=== PATIENT | male | born 1960 | race Hispanic/Latino ===

== ENCOUNTER 2017-05-03 12:57 | Inpatient (IN) | payer SELFPAY ==
[2017-05-03 13:40] LABS: Basophils % (Auto) 0.6 % (0.0-1.8); Eosinophils % (Auto) 0.4 % (0.0-4.3); Hematocrit 51.2 % (35.5-45.6); Hemoglobin 17.2 gm/dl (11.8-15.2); Mean Corpuscular HGB Conc 34 % (32-34); Mean Corpuscular Hemoglobin 30 pg (28-32); Mean Corpuscular Volume 88 fl (84-94); Platelet Count 201 K/mm3 (140-440); Red Blood Count 5.83 M/mm3 (3.65-5.03); Red Cell Distribution Width 13.6 % (13.2-15.2); White Blood Count 9.2 K/mm3 (4.5-11.0)
[2017-05-03 13:56] LABS: Anion Gap 18 mmol/L; BUN/Creatinine Ratio 9; Blood Urea Nitrogen 9 mg/dL (9-20); Carbon Dioxide 25 mmol/L (22-30); Chloride 99.4 mmol/L (98-107); Glucose 114 mg/dL (75-100); Potassium 4.4 mmol/L (3.6-5.0); Sodium 138 mmol/L (137-145)
--- NOTE | 2017-05-03 14:06 | Emergency Department Report ---
Chief Complaint: Chest Pain Stated Complaint: CHEST PAIN Time Seen by Provider: 05/03/17 14:01 - HPI History of Present Illness: Patient is a 56-year-old male to history of hyperlipidemia who presents to ED complaining of meets left-sided chest pain times this morning. Patient was seen over at [facility] and was sent to the ED for further evaluation. Patient states pain localized mid to left chest area. He denies fevers/chills/nausea/vomiting/abdominal pain/dizziness or headache - ROS Review of Systems: As noted in HPI - Exam Vital Signs: Vital Signs 05/03/17 13:14 Temperature 97.4 F L Pulse Rate 106 H Respiratory 18 Rate Blood Pressure 129/84 O2 Sat by Pulse 97 Oximetry Physical Exam: GENERAL: Alert and oriented x3, no apparent distress, Normal Gait, atraumatic. LUNGS: Symetrical with respiration, No wheezing, no rales or crackles, CTAB. HEART: S1, S2 present, regular rate and rhythm without murmur, no rubs, no gallops. Non tender to palpation SKIN: Warm and dry, No lesions, No ulceration or induration present. MSE screening note: Focused history and physical exam performed. Due to findings the following was ordered: ED Medical Decision Making - Lab Data Result diagrams: 05/03/17 13:21 05/03/17 13:21 - Medical Decision Making [id number] male stable his in no distress Chest pain protocol ordered. Chest x-ray ordered. Patient to be seen by ED physician ED Disposition for MSE Condition: Stable
--- NOTE | 2017-05-03 14:54 | XRay Report ---
ROUTINE CHEST, TWO VIEWS: HISTORY: chest pain. The trachea, heart, mediastinal contour, lung oro and bony thorax are unremarkable. IMPRESSION: Unremarkable chest x-ray.
[2017-05-04] MEDS ORDERED: NACL 0.9% 1000 ML 1,000 ML IV ONE (06:25)
--- NOTE | 2017-05-04 06:28 | Emergency Department Report ---
ED Chest Pain HPI - General Chief Complaint: Chest Pain Stated Complaint: CHEST PAIN Time Seen by Provider: 05/03/17 14:01 Source: patient Mode of arrival: Ambulatory Limitations: No Limitations - History of Present Illness Initial Comments: 56 Y9O MALE WITH RETROSTERNAL CHEST PAIN RADIATING DOWN BOTH ARMS ASSOCIATED WITH DIZZINESS. PT BEGAN TO HAVE THESE SYMPTOMS MORE THAN A MONTH AGO AND WAS REFERRED TO THE [facility] DR JOON AREVALO FOR NUCLEAR STRESS TEST. THE PT WA GIVEN 3.84 MCL OF TL-201 CHLORIDE IV FOR EVALUATION OF MYOCARDIAL FUNCTION AND PERFUSION AT REST. THE RESULTS WERE ABNORMAL DEMONSTRATING A MEDIUM TO LARGE SIZE DEFECT OF MODERATE INTENSITY IN THE BASAL AND MID SEGMENTS OF THE INFERIOR WALL. THIS DEFECT IS REVERSIBLE. PT WAS SENT HER BY IS PCP TO HAVE CARDIAC CATH AND STENT IF POSSIBLE TO FIX THSI DEFECT. MD Complaint: chest pain -: Gradual, week(s) (1 ) Onset: during exertion Pain Location: substernal Pain Radiation: RUE, LUE Severity: moderate, severe Severity scale (0 -10): 8 Quality: tightness, other (BURNING) Consistency: intermittent Improves With: rest Worsens With: exertion re: dyspnea. denies: nausea, vomting Treatments Prior to Arrival: none - Related Data Allergies Allergy/AdvReac Type Severity Reaction Status Date / Time codeine Allergy Nausea Verified 05/03/17 13:14 Heart Score - HEART Score History: Highly suspicious EKG: Normal Age: 45-65 Risk factors: > 3 risk factors or hx of atherosclerotic disease Troponin: < normal limit HEART Score: 5 ED Review of Systems ROS: Stated complaint: CHEST PAIN Other details as noted in HPI Constitutional: denies: chills, fever Eyes: denies: eye pain, eye discharge, vision change ENT: denies: ear pain, throat pain Respiratory: denies: cough, shortness of breath, wheezing Cardiovascular: palpitations Endocrine: excessive sweating Gastrointestinal: denies: abdominal pain, nausea, diarrhea Genitourinary: denies: urgency, dysuria Musculoskeletal: denies: back pain, joint swelling, arthralgia Skin: denies: rash, lesions Neurological: weakness. denies: headache, paresthesias Psychiatric: denies: anxiety, depression Hematological/Lymphatic: denies: easy bleeding, easy bruising ED Past Medical Hx - Past Medical History Previous Medical History?: Yes Hx Hypertension: Yes Additional medical history: High cholesterol, CAD - Surgical History Past Surgical History?: No - Family History Family history: hypertension - Social History Smoking Status: Former Smoker Substance Use Type: Alcohol, Prescribed ED Physical Exam - General Limitations: No Limitations General appearance: alert, in no apparent distress - Head Head exam: Present: atraumatic, normocephalic - Eye Eye exam: Present: normal appearance, EOMI - ENT ENT exam: Present: mucous membranes moist - Neck Neck exam: Present: normal inspection, full ROM - Respiratory Respiratory exam: Present: normal lung sounds bilaterally. Absent: respiratory distress - Cardiovascular Cardiovascular Exam: Present: regular rate, normal rhythm. Absent: systolic murmur, diastolic murmur, rubs, gallop - GI/Abdominal GI/Abdominal exam: Present: soft, normal bowel sounds, other (LARGE CENTRIPITAL FAT) - Rectal Rectal exam: Present: deferred - Extremities Exam Extremities exam: Present: normal inspection, full ROM - Back Exam Back exam: Present: normal inspection, full ROM - Neurological Exam Neurological exam: Present: alert, oriented X3, CN II-XII intact - Psychiatric Psychiatric exam: Present: normal affect, normal mood - Skin Skin exam: Present: warm, dry, intact, normal color. Absent: rash ED Course Vital Signs 05/03/17 05/03/17 05/04/17 13:14 20:07 04:19 Temperature 97.4 F L 98.4 F 97.8 F Pulse Rate 106 H 84 80 Respiratory 18 16 18 Rate Blood Pressure 129/84 Blood Pressure 132/84 121/69 [Left] O2 Sat by Pulse 97 97 98 Oximetry 05/04/17 06:55 Temperature Pulse Rate 96 H Respiratory 18 Rate Blood Pressure Blood Pressure 126/94 [Left] O2 Sat by Pulse 96 Oximetry SHAJI score - Shaji Score Age > 65: (0) No Aspirin use within the Past 7 Days: (0) No 3 or more CAD Risk Factors: (1) Yes 2 or more Angina events in past 24 hrs: (1) Yes Known CAD with more than 50% Stenosis: (1) Yes Elevated Cardiac Markers: (0) No ST Deviation Greater than 0.5mm: (0) No SHAJI Score: 3 ED Medical Decision Making - Lab Data Result diagrams: 05/03/17 13:21 05/03/17 13:21 - EKG Data EKG shows normal: sinus rhythm, axis, intervals, QRS complexes (Q IN AV1) Rate: tachycardia - EKG Data When compared to previous EKG there are: other (TACHYCARDIA RESOLVED) - Radiology Data Radiology results: report reviewed (CXR;NEGATIVE) Critical care attestation.: If time is entered above; I have spent that time in minutes in the direct care of this critically ill patient, excluding procedure time. ED Disposition Clinical Impression: Unstable angina, Obesity (BMI 30.0-34.9) Disposition: -09 OP ADMIT IP TO THIS HOSP Is pt being admited?: Yes Does the pt Need Aspirin: Yes Condition: Stable Instructions: Angina (ED) Referrals: PRIMARY CARE, [Primary Care Provider] - 3-5 Days Time of Disposition: 07:39 (CASE REVIEWED WITH TINA DIANE WHO WILL ADMIT THE PT TO THE HOSPITAL)
[2017-05-04 07:02] LABS: INR 0.97 (0.87-1.13)
[2017-05-04] MEDS ORDERED: NACL 0.9% 500 ML 500 ML IV SCH ×2 (09:00→18:00)
[2017-05-04] MEDS ORDERED: NACL 0.9% 500 ML 500 ML ONE (09:14)
[2017-05-04] MEDS ORDERED: ECOTRIN PO ONE (09:14)
--- NOTE | 2017-05-04 09:28 | Consultation ---
History of Present Illness Consult date: 05/04/17 Consult reason: chest pain History of present illness: This is a 56yr old male who reports a history of Hypertension and Hyperlipidemia. Patient also chews tobacco. He presents to the emergency department with complaints of chest pain. Patient reports worsening chest pain on exertion associated with shortness of breath, nausea and dizziness. He denies syncope. Within the last month, the patient was referred from his pcp office to [facility] for a persantine thallium stress test. The results were abnormal demonstrating a medium to large size reversible defect of the basal and mid segments of the inferior wall. Patient was sent to the ED by his pcp for futher cardiac evaluation. Medications and Allergies Allergies Allergy/AdvReac Type Severity Reaction Status Date / Time codeine Allergy Nausea Verified 05/03/17 13:14 Active Meds: Active Medications Aspirin (Aspirin) 325 mg PO QDAY LOIDA Physical Examination Vital Signs Temp Pulse Resp BP Pulse Ox 97.4 F L 106 H 18 129/84 97 05/03/17 13:14 05/03/17 13:14 05/03/17 13:14 05/03/17 13:14 05/03/17 13:14 General appearance: no acute distress HEENT: Positive: PERRL Neck: Positive: trachea midline Cardiac: Positive: Reg Rate and Rhythm Lungs: Positive: Decreased Breath Sounds Neuro: Positive: Grossly Intact Extremities: Absent: edema Results 05/03/17 13:21 05/03/17 13:21 Coagulation 05/04/17 Range/Units 06:43 PT 13.4 (12.2-14.9) Sec. INR 0.97 (0.87-1.13) APTT 32.0 (24.2-36.6) Sec. CBC 05/03/17 Range/Units 13:21 WBC 9.2 (4.5-11.0) K/mm3 RBC 5.83 H (3.65-5.03) M/mm3 Hgb 17.2 H (11.8-15.2) gm/dl Hct 51.2 H (35.5-45.6) % Plt Count 201 (140-440) K/mm3 Lymph # 2.3 (1.2-5.4) K/mm3 Cobb # 1.0 H (0.0-0.8) K/mm3 Eos # 0.0 (0.0-0.4) K/mm3 Baso # 0.1 (0.0-0.1) K/mm3 Comprehensive Metabolic Panel 05/03/17 Range/Units 13:21 Sodium 138 (137-145) mmol/L Potassium 4.4 (3.6-5.0) mmol/L Chloride 99.4 (98-107) mmol/L Carbon Dioxide 25 (22-30) mmol/L BUN 9 (9-20) mg/dL Creatinine 1.0 (0.8-1.5) mg/dL Glucose 114 H (75-100) mg/dL Calcium 9.0 (8.4-10.2) mg/dL Assessment and Plan Chest pain Abnormal outpatient MPI Hypertension We will recommend a cardiac cath for further ischemic evaluation.
[2017-05-04] MEDS ORDERED: NITROGLYCERIN SYRINGE 3 ML ONE (09:32)
[2017-05-04] MEDS ORDERED: CALAN ONE (09:32)
[2017-05-04] MEDS ORDERED: XYLOCAINE 2% INFILTRATI ONE ×2 (09:32→09:33)
[2017-05-04] MEDS ORDERED: HEPARIN 10,000 UNITS/10 ML ONE (09:32)
[2017-05-04] MEDS ORDERED: HEPARIN/NS 5000 UNIT/500ML(CATH LAB) 1,000 ML IR ONE (09:32)
[2017-05-04] MEDS ORDERED: SUBLIMAZE ONE (09:33)
[2017-05-04] MEDS ORDERED: VERSED ONE (09:34)
[2017-05-04] MEDS ORDERED: ASPIRIN PO SCH (10:00)
--- NOTE | 2017-05-04 12:32 | Cardiac Catherization Report ---
INDICATION: Unstable angina. PROCEDURES PERFORMED: 1. Selective left and right coronary angiography. 2. Left ventriculography. DESCRIPTION OF PROCEDURE: After obtaining written consent, the patient was draped using sterile technique. A 2% lidocaine was injected into the right wrist. A 6-Cuban vascular sheath was inserted into the right radial artery. A 6-Cuban JL3.5 catheter was used to selectively engage left coronary artery. A 6-Cuban JR4 catheter was used to selectively engage the right coronary artery. A 6-Cuban JR4 catheter was used to hand inject the left ventriculogram. No complications occurred during the procedure. Hemostasis was achieved at the end of the procedure using manual pressure. SPECIMEN REMOVED: None. ESTIMATED BLOOD LOSS: Minimal. FINDINGS: HEMODYNAMICS: Left ventricular systolic pressure was 190 mmHg with a left ventricular end-diastolic pressure of 17 mmHg. The aortic pressure was 113/81. No significant gradient was noted across the LVOT. CARDIAC STRUCTURES: The left ventricle is normal in size and systolic function. The left ventricular ejection fraction is measured at 60%. Normal wall motion and wall thickening. CORONARY ANATOMY: 1. The left main is angiographically normal. 2. The LAD exhibits evidence of a very long tubular stenosis extending from the proximal all the way to the mid segment with 70-80% luminal compromise. The first diagonal artery is a very small caliber vessel. 3. The left circumflex artery is a dominant vessel. There is evidence of a 70% stenosis noted in the proximal segment of the PDA that is originating from the left circumflex artery. Otherwise, mild luminal irregularities. There is also evidence of a 60% ostial stenosis of the second obtuse marginal. 4. The right coronary artery is nondominant. There is a small vessel with evidence of 20% diffuse luminal irregularities. IMPRESSION: 1. Obstructive coronary artery disease noted in the proximal and mid LAD with a 70-80% luminal stenosis, also 70% proximal PDA stenosis originating from the left circumflex artery and 60% ostial second obtuse marginal. 2. Normal left ventricular size and systolic function. 3. LVEDP measured at 17 mmHg. RECOMMENDATIONS: The coronary angiograms will be reviewed for optimal revascularization strategy of PCI versus coronary artery bypass grafting. JOB# [id number] SHABBIR/ADRIEN
--- NOTE | 2017-05-04 13:15 | History and Physical Report ---
History of Present Illness Chief complaint: chest pain History of present illness: 56 YO Male with HTN, HLD, Obesity, Metabolic Syndrome presents to ED for evaluation. Pt states that he has experienced pain in his chest. Pain is 8/10, Substernal, worse with exertion, relieved with rest, burning in nature, intermittent, but moderate-severe in intensity. Pt was seen and evaluated by his PCP and sent to ED for evaluation. Pt seen and evaluated in ED and found to have evidence of Unstable Angina. Cardiology team consulted and patient was taken urgently to sugar laboratory assistant for intervention. No reports of fever, chills, Palpitations, NVD, Syncope, unintentional weight loss, night sweats, productive cough, skin rash, leg swelling, calf pain, prolonged immobility/travel, individual/family history of DVT/PE. Past History Past Medical History: hypertension, hyperlipidemia Social history: single Family history: hypertension Medications and Allergies Allergies Allergy/AdvReac Type Severity Reaction Status Date / Time codeine Allergy Nausea Verified 05/03/17 13:14 Home Medications Medication Instructions Recorded Confirmed Last Taken Type Atorvastatin Calcium [Lipitor] 80 mg PO QHS 05/04/17 05/04/17 05/02/17 History 80mg Nitroglycerin [Nitro Dur] 0.2 mg TRANSDERMA DAILY 05/04/17 05/04/17 05/03/17 History 0.2mg Ziac 5-6.25 1 tab PO DAILY 05/04/17 05/04/17 05/03/17 History 1 Active Meds: Active Medications Aspirin (Aspirin) 325 mg PO QDAY LOIDA Review of Systems Constitutional: no weight loss, no weight gain, no fever, no chills Ears, nose, mouth and throat: no ear pain, no ear discharge, no tinnitis, no decreased hearing, no nose pain, no nasal congestion Cardiovascular: chest pain, no orthopnea, no palpitations, no lightheadedness, no dyspnea on exertion, no paroxysmal nocturnal dyspnea, no claudication Respiratory: no cough, no cough with sputum, no excessive sputum, no hemoptysis Gastrointestinal: no abdominal pain, no nausea, no vomiting, no diarrhea Genitourinary Male: no hematuria, no flank pain, no discharge, no urinary frequency, no urinary hesitancy Rectal: no pain, no incontinence, no bleeding Musculoskeletal: no neck stiffness, no neck pain, no shooting arm pain, no arm numbness/tingling, no low back pain Integumentary: no rash, no pruritis, no redness, no sores, no wounds Neurological: no head injury, no transient paralysis, no paralysis, no weakness , no parathesias Psychiatric: no anxiety, no memory loss, no change in sleep habits, no sleep disturbances, no insomnia Endocrine: no cold intolerance, no heat intolerance, no polyphagia, no excessive thirst, no polydipsia Hematologic/Lymphatic: no easy bruising, no easy bleeding Allergic/Immunologic: no urticaria, no allergic rhinitis, no wheezing Exam - Constitutional Vitals: Temp Pulse Resp BP Pulse Ox 98 F 75 16 127/77 98 05/04/17 11:51 05/04/17 13:00 05/04/17 13:00 05/04/17 13:00 05/04/17 13:00 General appearance: Present: mild distress, obese - EENT Eyes: Present: PERRL ENT: hearing intact, clear oral mucosa - Neck Neck: Present: supple, normal ROM - Respiratory Respiratory effort: normal Respiratory: bilateral: diminished - Cardiovascular Heart Sounds: Present: S1 & S2. Absent: rub, click - Extremities Extremities: pulses symmetrical, No edema Peripheral Pulses: within normal limits - Abdominal General gastrointestinal: Present: soft, non-tender, non-distended, normal bowel sounds Male genitourinary: Present: normal - Integumentary Integumentary: Present: clear, warm, dry - Musculoskeletal Musculoskeletal: gait normal, strength equal bilaterally - Psychiatric Psychiatric: appropriate mood/affect, intact judgment & insight - Neurologic Neurologic: CNII-XII intact, moves all extremities Results - Labs CBC & Chem 7: 05/03/17 13:21 05/03/17 13:21 Labs: Abnormal lab results 05/03/17 05/03/17 Range/Units 13:21 13:21 RBC 5.83 H (3.65-5.03) M/mm3 Hgb 17.2 H (11.8-15.2) gm/dl Hct 51.2 H (35.5-45.6) % [place] % (Auto) 10.6 H (0.0-7.3) % [place] # 1.0 H (0.0-0.8) K/mm3 Glucose 114 H (75-100) mg/dL Assessment and Plan - Patient Problems (1) Unstable angina Current Visit: Yes Status: Acute Plan to address problem: Cardiology consulted, Patient taken urgently to sugar laboratory assistant for intervention, Admit to telemetry as per cardiology team request. (2) HTN (hypertension) Current Visit: Yes Status: Acute Plan to address problem: monitor bp q shift, supportive care, continue medical management (3) HLD (hyperlipidemia) Current Visit: Yes Status: Acute Plan to address problem: Statin therapy, low cholesterol diet, increased physical activity at discharge (4) Metabolic syndrome Current Visit: Yes Status: Acute Plan to address problem: Lipid panel, statin therapy, risk factor reduction therapy, low cholesterol diet , (5) DVT prophylaxis Current Visit: Yes Status: Acute
[2017-05-04] MEDS ORDERED: TYLENOL PO PRN (13:16)
[2017-05-04] MEDS ORDERED: DULCOLAX PR PRN (13:16)
[2017-05-04] MEDS ORDERED: PERCOCET 5/325 PO PRN (13:16)
[2017-05-04] MEDS ORDERED: ZOFRAN IV PRN (13:16)
[2017-05-04] MEDS ORDERED: MILK OF MAGNESIA PO PRN (13:16)
[2017-05-04] MEDS ORDERED: PROVENTIL IH PRN (13:16)
[2017-05-04] MEDS ORDERED: NITROSTAT SL PRN (17:15)
[2017-05-04] MEDS ORDERED: PLAVIX PO SCH (18:00)
[2017-05-04] MEDS: TOPROL XL PO SCH (18:24)
[2017-05-05 06:16] LABS: Anion Gap 16 mmol/L; BUN/Creatinine Ratio 8; Blood Urea Nitrogen 8 mg/dL (9-20); Calcium 8.8 mg/dL (8.4-10.2); Carbon Dioxide 27 mmol/L (22-30); Chloride 102.6 mmol/L (98-107); Glucose 90 mg/dL (75-100); Potassium 4.3 mmol/L (3.6-5.0); Sodium 141 mmol/L (137-145)
[2017-05-05] MEDS ORDERED: NITROGLYCERIN SYRINGE 3 ML ONE (06:16)
[2017-05-05] MEDS ORDERED: HEPARIN/NS 5000 UNIT/500ML(CATH LAB) 1,000 ML IR ONE (06:16)
[2017-05-05] MEDS ORDERED: CALAN ONE (06:16)
[2017-05-05] MEDS ORDERED: XYLOCAINE 2% INFILTRATI ONE (06:16)
[2017-05-05] MEDS ORDERED: SUBLIMAZE ONE (06:17)
[2017-05-05] MEDS ORDERED: NACL 0.9% 500 ML 500 ML ONE (06:17)
[2017-05-05] MEDS ORDERED: VERSED ONE (06:17)
[2017-05-05 06:22] LABS: INR 1.02 (0.87-1.13)
[2017-05-05] MEDS: HEPARIN 10,000 UNITS/10 ML ONE ×2 (07:43→08:44)
[2017-05-05] MEDS ORDERED: AGGRASTAT DRIP (12.5 MG/250 ML) 12,500 MCG/250 ML BAG IV SCH (08:00)
[2017-05-05] MEDS ORDERED: AGGRASTAT DRIP (12.5 MG/250 ML) 12,500 MCG/250 ML BAG IV ONE (08:13)
[2017-05-05] MEDS ORDERED: ALUM-MAG HYDROX-SIMETH 200-200-20MG/5ML ONE (08:14)
[2017-05-05] MEDS ORDERED: BRILINTA ONE (08:14)
--- NOTE | 2017-05-05 08:53 | Event Note ---
Date: 05/05/17 Patient underwent complicated multivessel PCI of the LAD and Lpda with multiple DOE Tolerated procedure well aspirin/brilinta ( samples to be given ) Aggresive medical therapy Aggresive risk factor modification If stable DC home in AM
--- NOTE | 2017-05-05 09:18 | Cardiac Catherization Report ---
PERCUTANEOUS INTERVENTION REPORT REFERRING PHYSICIAN: Dr. Goff. PROCEDURES PERFORMED: 1. Selective left coronary angiogram. 2. Successful percutaneous intervention of the LAD. 3. Successful percutaneous intervention of the LPDA, PDA. INDICATION: Unstable angina with the recent angiogram revealing critical LAD in the LPDA stenosis. Surgical of consult was obtained and the patient felt to be a poor candidate for surgery, hence complicated PCI is being planned. PROCEDURE DETAILS: Intravenous heparin was used to maintain therapeutic ACT. Using the standard technique, a 6-Yakut sheath was placed in the right radial artery. Sheath was cleaned and flushed. A XB 3.5 guide catheter was used to engage the left main. A BMW wire was used to cross the LAD. After multiple pre-dilatations, a 2.25 x 30 Resolute drug-eluting stent was deployed in the mid LAD. Then, this was overlapped proximally and in the mid portion with a 2.75 x 30 Resolute drug-eluting stent. The entire stented segment was postdilated with a 2.75 balloon. The overlapped segment and the proximal LAD stent that was post-dilated within the stent margins using a 3.0 noncompliant balloon. Then, we directed our attention to the LPDA. A Bounty Hunter 50 wire was used to cross the LPDA. After initial pre-dilatation, a 2.5 x 18 Resolute drug-eluting stent was deployed with excellent results. Subsequent angiogram showed excellent result with no residual stenosis or dissection. Intravenous Aggrastat was also initiated in between the procedure given the long number of stents and the thrombotic nature of the stenosis. The patient tolerated procedure and was chest pain free at the end of the procedure, 180 mg of Brilinta was given. The sheath was removed and TR band applied. FINDINGS: 1. LAD long stenosis from the proximal to the mid LAD greater than 80%. 2. Circumflex has a dominant vessel, LPDA has eccentric 80-90% stenosis. IMPRESSION: 1. Status post PCI of the LAD with overlapping drug-eluting stent. Stent including 2.25 x 30 mid overlapped with a 2.75 x 30 proximally. 2. Successful percutaneous intervention of the LPDA with the deployment of a 2.5 x 18 drug-eluting stent. PLAN: 1. Aggressive risk factor modification. 2. Dual antiplatelet therapy for 1 year, preferably more. The patient has been educated on the importance of taking dual antiplatelet therapy given multiple stents. 3. Aggrastat for 12 hours. 4. Routine adjuvant pharmacotherapy post-PCI. 5. Routine radial artery sheath care. JOB# [id number] RR/NTS
[2017-05-05] MEDS: BABY ASPIRIN PO SCH (10:52)
[2017-05-05] MEDS: TOPROL XL PO SCH (10:53)
[2017-05-05 15:36] LABS: Hematocrit 49.9 % (35.5-45.6); Hemoglobin 16.7 gm/dl (11.8-15.2)
--- NOTE | 2017-05-05 17:43 | Progress Note ---
Assessment and Plan Assessment and plan: 56-year-old gentleman whose past medical history significant for CAD status post stent, hypertension, hyperlipidemia admitted to the hospital for chest pain and abnormal MPI Acute NV - Status post stent placement this morning on LAD and LPDA with multiple DOE - Tolerated procedure well - aspirin, aggrastat drip, brillanta, statin - Aggresive medical therapy - Aggresive risk factor modification - Patient is chest pain-free Hypertension - Metoprolol - Controlled Hyperlipidemia - On atorvastatin Disposition - Possible discharge in a.m. History Interval history: Patient was seen and evaluated this morning after cardiac cath, patient's chest pain subsided. Family members was in the room and discussed the management plan in detail. Hospitalist Physical - Physical exam Narrative exam: Not in cardiopulmonary distress. The patient is obese. Vital signs as documented. Head exam is unremarkable. No scleral icterus . Neck is without jugular venous distension, thyromegaly, or carotid bruits. Lungs are clear to auscultation. Cardiac exam reveals regular rate and Rhythm. First and second heart sounds normal. No murmurs, rubs or gallops. Abdominal exam reveals normal bowel sounds, no masses, no organomegaly and no aortic enlargement. Extremities are nonedematous and both femoral and pedal pulses are normal. MULTI SENSOR OPERATOR: Alert and oriented 3. No focal weakness. - Constitutional Vitals: Temp Pulse Resp BP Pulse Ox 97.9 F 70 18 1108/62 93 05/05/17 13:01 05/05/17 14:00 05/05/17 13:04 05/05/17 14:00 05/05/17 13:04 General appearance: Present: mild distress, obese Results - Labs CBC & Chem 7: 05/05/17 15:09 05/05/17 04:39 Labs: Laboratory Last Values WBC 9.2 K/mm3 (4.5-11.0) 05/03/17 13:21 RBC 5.83 M/mm3 (3.65-5.03) H 05/03/17 13:21 Hgb 16.7 gm/dl (11.8-15.2) H 05/05/17 15:09 Hct 49.9 % (35.5-45.6) H 05/05/17 15:09 MCV 88 fl (84-94) 05/03/17 13:21 MCH 30 pg (28-32) 05/03/17 13:21 MCHC 34 % (32-34) 05/03/17 13:21 RDW 13.6 % (13.2-15.2) 05/03/17 13:21 Plt Count 201 K/mm3 (140-440) 05/03/17 13:21 Lymph % (Auto) 25.2 % (13.4-35.0) 05/03/17 13:21 [place] % (Auto) 10.6 % (0.0-7.3) H 05/03/17 13:21 Eos % (Auto) 0.4 % (0.0-4.3) 05/03/17 13:21 Baso % (Auto) 0.6 % (0.0-1.8) 05/03/17 13:21 Lymph # 2.3 K/mm3 (1.2-5.4) 05/03/17 13:21 [place] # 1.0 K/mm3 (0.0-0.8) H 05/03/17 13:21 Eos # 0.0 K/mm3 (0.0-0.4) 05/03/17 13:21 Baso # 0.1 K/mm3 (0.0-0.1) 05/03/17 13:21 Seg Neutrophils % 63.2 % (40.0-70.0) 05/03/17 13:21 Seg Neutrophils # 5.8 K/mm3 (1.8-7.7) 05/03/17 13:21 PT 13.9 Sec. (12.2-14.9) 05/05/17 04:39 INR 1.02 (0.87-1.13) 05/05/17 04:39 APTT 32.0 Sec. (24.2-36.6) 05/04/17 06:43 D-Dimer < 135.00 ng/mlDDU (0-234) 05/04/17 06:43 Sodium 141 mmol/L (137-145) 05/05/17 04:39 Potassium 4.3 mmol/L (3.6-5.0) 05/05/17 04:39 Chloride 102.6 mmol/L (98-107) 05/05/17 04:39 Carbon Dioxide 27 mmol/L (22-30) 05/05/17 04:39 Anion Gap 16 mmol/L 05/05/17 04:39 BUN 8 mg/dL (9-20) L 05/05/17 04:39 Creatinine 1.0 mg/dL (0.8-1.5) 05/05/17 04:39 Estimated GFR > 60 ml/min 05/05/17 04:39 BUN/Creatinine Ratio 8 % 05/05/17 04:39 Glucose 90 mg/dL (75-100) 05/05/17 04:39 Calcium 8.8 mg/dL (8.4-10.2) 05/05/17 04:39 Troponin T < 0.010 ng/mL (0.00-0.029) 05/03/17 19:07 TSH 2.810 mlU/mL (0.270-4.200) 05/04/17 07:53 Free T4 1.38 ng/dL (0.76-1.46) 05/04/17 07:53
[2017-05-05] MEDS: BRILINTA PO SCH (22:45)
[2017-05-06] MEDS ORDERED: AMBIEN PO ONE (02:59)
[2017-05-06 05:46] LABS: Creatine Kinase MB 2.9 ng/mL (0.0-4.0)
[2017-05-06 05:48] LABS: Basophils % (Auto) 0.4 % (0.0-1.8); Eosinophils % (Auto) 0.5 % (0.0-4.3); Hematocrit 49.3 % (35.5-45.6); Hemoglobin 16.6 gm/dl (11.8-15.2); Mean Corpuscular HGB Conc 34 % (32-34); Mean Corpuscular Hemoglobin 30 pg (28-32); Mean Corpuscular Volume 88 fl (84-94); Platelet Count 176 K/mm3 (140-440); Red Blood Count 5.59 M/mm3 (3.65-5.03); Red Cell Distribution Width 13.7 % (13.2-15.2); White Blood Count 9.6 K/mm3 (4.5-11.0)
[2017-05-06 05:52] LABS: Anion Gap 17 mmol/L; BUN/Creatinine Ratio 9; Blood Urea Nitrogen 8 mg/dL (9-20); Calcium 8.7 mg/dL (8.4-10.2); Carbon Dioxide 24 mmol/L (22-30); Chloride 103.6 mmol/L (98-107); Creatine Kinase 118 units/L (55-170); Glucose 95 mg/dL (75-100); Potassium 3.9 mmol/L (3.6-5.0); Sodium 141 mmol/L (137-145)
--- NOTE | 2017-05-06 09:44 | Discharge Summary ---
Providers - Providers Date of Admission: 05/04/17 13:16 Date of discharge: 05/06/17 Attending physician: CALIXTO MIRZA MD 05/05/17 Consult to Cardiac Rehabilitation [CONS] Routine Reason For Exam: post pci Primary care physician: BLOCK HAND Hospitalization Reason for admission: ACS, unstable angina Condition: Stable Pertinent studies: cardiac cath Hospital course: 56 YO Male with HTN, HLD, Obesity, Metabolic Syndrome presents to ED for evaluation. Pt states that he has experienced pain in his chest. Pain is 8/10, Substernal, worse with exertion, relieved with rest, burning in nature, intermittent, but moderate-severe in intensity. Pt was seen and evaluated by his PCP and sent to ED for evaluation. Pt seen and evaluated in ED and found to have evidence of Unstable Angina. Cardiology team consulted and patient was taken urgently to [facility] for intervention. Unstable angina s/p complicated multivessel PCI of the LAD and Lpda with multiple DOE Hypertension Recommendations: Continue DAPT with Brilinta and aspirin, beta blockers and statin therapies for coronary artery disease. F/U with [facility] within 1-2 weeks. Disposition: [id number] TO HOME OR SELFCARE Time spent for discharge: 31 minutes - Discharge Diagnoses (1) HLD (hyperlipidemia) Status: Acute (2) HTN (hypertension) Status: Acute (3) Metabolic syndrome Status: Acute (4) Obesity (BMI 30.0-34.9) Status: Acute (5) Unstable angina Status: Acute Core Measure Documentation - Palliative Care Palliative Care/ Comfort Measures: Not Applicable - Core Measures Any of the following diagnoses?: acute OK - Acute OK Discharge Requirements Aspirin at discharge: Yes SANA/ARB for LVSD if EF <40%: Yes Beta elba at discharge: Yes Statin for LDL = or >100 mg/dl on DC: Yes Exam - Physical Exam Narrative exam: Not in cardiopulmonary distress. The patient is obese. Vital signs as documented. Head exam is unremarkable. No scleral icterus . Neck is without jugular venous distension, thyromegaly, or carotid bruits. Lungs are clear to auscultation. Cardiac exam reveals regular rate and Rhythm. First and second heart sounds normal. No murmurs, rubs or gallops. Abdominal exam reveals normal bowel sounds, no masses, no organomegaly and no aortic enlargement. Extremities are nonedematous and both femoral and pedal pulses are normal. KILNMAN: Alert and oriented 3. No focal weakness. - Constitutional Vitals: Temp Pulse Resp BP Pulse Ox 98.4 F 65 20 123/77 97 05/06/17 09:16 05/06/17 09:16 05/06/17 09:16 05/06/17 09:16 05/06/17 09:16 Plan Activity: no restrictions Weight Bearing Status: Full Weight Bearing Diet: low fat, low cholesterol, low salt Follow up with: PRIMARY MD NEW [Primary Care Provider] - 7 Days ALANNA FIELDS MD [Staff Physician] - 14 Days LINDSAY GARCÍA MD [Referring] - 7 Days Prescriptions: Atorvastatin Calcium [Lipitor] 80 mg PO QHS #30 tablet Aspirin [Aspirin BABY CHEW TAB] 81 mg PO QDAY #30 tab.chew Clopidogrel Bisulfate [Plavix] 75 mg PO DAILY #30 tablet Lisinopril [Prinivil] 10 mg PO DAILY #30 tablet Metoprolol Xl [Metoprolol SUCCINATE ER TAB] 50 mg PO QDAY #30 tablet oxyCODONE /ACETAMINOPHEN [Percocet 5/325 mg] 1 tab PO Q6H PRN #12 tablet PRN Reason: Pain, Moderate (4-6) Ticagrelor [Brilinta] 90 mg PO BID #60 tablet
[2017-05-06] MEDS: BABY ASPIRIN PO SCH (10:27)
[2017-05-06] MEDS: BRILINTA PO SCH (10:27)
[2017-05-06] MEDS: TOPROL XL PO SCH (10:27)
--- NOTE | 2017-05-06 10:53 | Progress Note ---
Assessment and Plan Unstable angina s/p complicated multivessel PCI of the LAD and Lpda with multiple DOE Hypertension Recommendations: Continue DAPT with Brilinta and aspirin, beta blockers and statin therapies for coronary artery disease. F/U with [facility] within 1-2 weeks. Subjective Date of service: 05/06/17 Interval history: Patient reports he is feeling better. He denies chest pain and shortness of breath. Objective Vital Signs Temp Pulse Pulse Resp BP BP BP 05/06/17 10:30 05/06/17 10:27 78 136/82 05/06/17 09:16 98.4 F 65 20 123/77 05/06/17 04:51 97.5 F L 64 22 120/74 05/06/17 02:00 64 05/06/17 00:11 98.1 F 17 129/72 05/05/17 22:00 18 05/05/17 19:47 97.6 F 81 18 134/75 05/05/17 18:00 90 05/05/17 15:58 77 18 136/94 05/05/17 14:00 70 110/62 05/05/17 13:04 78 18 117/85 05/05/17 13:02 78 18 125/80 05/05/17 13:01 97.9 F 69 18 108/62 05/05/17 12:13 78 117/85 05/05/17 12:12 75 125/80 05/05/17 12:10 69 108/62 05/05/17 12:00 98.2 F 74 20 118/72 05/05/17 11:15 98.4 F 78 20 124/76 05/05/17 10:53 74 140/86 Pulse Ox 05/06/17 10:30 99 05/06/17 10:27 05/06/17 09:16 97 05/06/17 04:51 95 05/06/17 02:00 05/06/17 00:11 05/05/17 22:00 99 05/05/17 19:47 97 05/05/17 18:00 05/05/17 15:58 100 05/05/17 14:00 05/05/17 13:04 93 05/05/17 13:02 94 05/05/17 13:01 93 05/05/17 12:13 93 05/05/17 12:12 94 05/05/17 12:10 93 05/05/17 12:00 97 05/05/17 11:15 98 05/05/17 10:53 - Physical Examination General: No Apparent Distress HEENT: Positive: PERRL Neck: Positive: trachea midline Cardiac: Positive: Reg Rate and Rhythm Neuro: Positive: Grossly Intact Extremities: Absent: edema - Labs and Meds Cardiac Enzymes 05/06/17 Range/Units 05:09 CK-MB (CK-2) 2.9 (0.0-4.0) ng/mL CBC 05/05/17 05/06/17 Range/Units 15:09 05:09 WBC 9.6 (4.5-11.0) K/mm3 RBC 5.59 H (3.65-5.03) M/mm3 Hgb 16.7 H 16.6 H (11.8-15.2) gm/dl Hct 49.9 H 49.3 H (35.5-45.6) % Plt Count 176 (140-440) K/mm3 Lymph # 2.6 (1.2-5.4) K/mm3 [place] # 1.0 H (0.0-0.8) K/mm3 Eos # 0.0 (0.0-0.4) K/mm3 Baso # 0.0 (0.0-0.1) K/mm3 Comprehensive Metabolic Panel 05/06/17 Range/Units 05:09 Sodium 141 (137-145) mmol/L Potassium 3.9 (3.6-5.0) mmol/L Chloride 103.6 (98-107) mmol/L Carbon Dioxide 24 (22-30) mmol/L BUN 8 L (9-20) mg/dL Creatinine 0.9 (0.8-1.5) mg/dL Glucose 95 (75-100) mg/dL Calcium 8.7 (8.4-10.2) mg/dL
[2017-05-06 12:17] VITALS: BP 120/74
[2017-05-06] MEDS ORDERED: LOPRESSOR PO SCH (22:00)
== END 2017-05-06 12:43 | disposition home or self-care (01) | DRG 247 ==
LOC: ED 12:57 → CATH 05-04 09:18 → 4A 05-04 13:16
PROVIDERS: ADMIT Internal Medicine; ATTEND Internal Medicine
PROC: 4A023N7 Measurement of Cardiac Sampling and Pressure, Left Heart, Percutaneous Approach (ICD-10-PCS; principal; 2017-05-04)
PROC: 027236Z Dilation of Coronary Artery, Three Arteries with Three Drug-eluting Intraluminal Devices, Percutaneous Approach (ICD-10-PCS; 2017-05-04)
PROC: B2111ZZ Fluoroscopy of Multiple Coronary Arteries using Low Osmolar Contrast (ICD-10-PCS; 2017-05-04)
PROC: B2151ZZ Fluoroscopy of Left Heart using Low Osmolar Contrast (ICD-10-PCS; 2017-05-04)
PROC: B2101ZZ Fluoroscopy of Single Coronary Artery using Low Osmolar Contrast (ICD-10-PCS; 2017-05-04)
DX: I21.3 ST elevation (STEMI) myocardial infarction of unspecified site (principal); I25.110 Atherosclerotic heart disease of native coronary artery with unstable angina pectoris; E78.5 Hyperlipidemia, unspecified; I10 Essential (primary) hypertension; E88.81 Metabolic syndrome and other insulin resistance; E66.9 Obesity, unspecified; Z68.35 Body mass index [BMI] 35.0-35.9, adult; Z88.5 Allergy status to narcotic agent; Z82.49 Family history of ischemic heart disease and other diseases of the circulatory system; Z72.89 Other problems related to lifestyle; Z95.5 Presence of coronary angioplasty implant and graft
CPT/HCPCS: 36415; 71020; 80048; 82550; 82553; 84439; 84443; 84484; 85014; 85018; 85025; 85347; 85379; 85610; 85730; 92928; 92929; 93005; 93010; 93458; A9270-GY; C1725; C1769; C1874; C1887; C1894; C9600; C9601; J1644; J2250; J3010; J3246; J7030; J7040; Q9967